=== PATIENT | female | born 1995 | race Caucasian/White ===

== ENCOUNTER 2017-10-27 20:50 | Emergency (ER) | payer SELFPAY ==
[2017-10-27 20:59] VITALS: BP 123/73; PULSE 89; RESP 16; TEMP 98.9; O2SAT 100
--- NOTE | 2017-10-27 21:31 | C.PDOC ---
History Of Present Illness 22 yo female c/o right thumb laceration at noon today. Pt notes that she picked up a glass cup and it broke in her hand. Notes she cleaned it out, dressed it and went to work. She noted some bleeding persisted prompted ED visit. Right hand dominant. No change in sensation. UP to date on tetanus. Time Seen by Provider: 10/27/17 21:04 Chief Complaint (Nursing): Abnormal Skin Integrity History Per: Patient History/Exam Limitations: no limitations Onset/Duration Of Symptoms: Hrs Current Symptoms Are (Timing): Still Present Past Medical History Vital Signs: Last Vital Signs Temp 98.9 F 10/27/17 20:55 Pulse 89 10/27/17 20:55 Resp 16 10/27/17 20:55 BP 123/73 10/27/17 20:55 Pulse Ox 100 10/27/17 21:47 - Medical History PMH: Asthma Family History: States: Unknown Family Hx - Social History Hx Tobacco Use: No Hx Alcohol Use: No Hx Substance Use: No - Immunization History Hx Tetanus Toxoid Vaccination: No Hx Influenza Vaccination: No Hx Pneumococcal Vaccination: No Review Of Systems Constitutional: Negative for: Fever Neurological: Negative for: Weakness, Numbness Physical Exam - Physical Exam Appears: Well, Non-toxic, No Acute Distress Skin: Warm, Dry, Other ((+) 1.5 cm half bustillo laceration to the tip of the right thumb that is approximated well and started healing, no open laceration) Head: Atraumatic, Normacephalic Eye(s): bilateral: Normal Inspection, EOMI Nose: Normal Oral Mucosa: Moist Neck: Normal, Normal ROM, Supple Chest: Symmetrical Respiratory: No Accessory Muscle Use Extremity: Normal ROM, Tenderness (to the laceration), Capillary Refill (< 2 sec ), No Swelling Pulses: Left Radial: Normal, Right Radial: Normal Neurological/Psych: Oriented x3, Normal Speech, Normal Motor, Normal Sensation ED Course And Treatment O2 Sat by Pulse Oximetry: 100 Progress Note: Pt was offered XR, but declined noting no FB . Discussed with pt wound is approximated well with no open laceration. Pt notes it was bleeding from one side of the cut. WOund cleansed. Glue applied to that edge. Pt notes concern for infection. Discussed wound care and instructed if signs of concern to fill abx and return to ER. Laceration - Laceration Repair right thumb Wound Length (In cm): 1.5 Description Of Wound: Linear Wound Cleansed With: Betadine, Sterile Saline Wound Examination: Irrigated With Saline, No FB With Wound Exploration, No Tendon Injury With Wound Exploration Wound Closure: Skin Glue Wound Complexity: Simple Disposition - Disposition Disposition: HOME/ ROUTINE Disposition Time: 21:45 Condition: STABLE Additional Instructions: Keep area clean and dry. May wash gently with soap and water, do not use alcohol or iodine solution. Change dressing 1-2 times daily. Return to ER if fever occurs, redness or swelling around wound, pus in the wound. Please follow up with your primary doctor in 1-2 days. Prescriptions: Cephalexin [cephalexin] 500 mg PO BID #14 cap Instructions: Laceration Repair With Glue (DC) Forms: [employer] ([place]) - Clinical Impression Clinical Impression: Thumb laceration
== END 2017-10-27 21:55 | disposition home or self-care (01) ==
LOC: C.ER 20:50
DX: S61.011A Laceration without foreign body of right thumb without damage to nail, initial encounter (principal); W25.XXXA Contact with sharp glass, initial encounter; Y92.89 Other specified places as the place of occurrence of the external cause